=== PATIENT | male | born 1960 | race Two or more races ===

== ENCOUNTER 2019-04-05 12:03 | Emergency (ER) | payer OTHER ==
[~2019-04-05] VITALS: Ht 170.2 cm; Wt 128.8 kg
[2019-04-05] MEDS ORDERED: TRAMADOL HCL 50 MG TABLET PO ONE (13:00)
[2019-04-05] MEDS ORDERED: TRAMADOL HCL 50 MG TABLET ONE (13:01)
--- NOTE | 2019-04-05 13:09 | NUR ---
Patient discharged to home in stable conditon. Written and verbal after care instructions given. Patient verbalizes understanding of instructions. Patient ambulated with stable gait. Son will drive patient home.
[2019-04-05 13:10] VITALS: BP 158/71
== END 2019-04-05 13:10 | disposition home or self-care (01) ==
LOC: ER 12:03
DX: K08.89 Other specified disorders of teeth and supporting structures (principal); E11.9 Type 2 diabetes mellitus without complications; Z88.6 Allergy status to analgesic agent; Z88.5 Allergy status to narcotic agent; Z79.899 Other long term (current) drug therapy; Z79.82 Long term (current) use of aspirin; Z79.84 Long term (current) use of oral hypoglycemic drugs
CPT/HCPCS: A4663